=== PATIENT | female | born 1970 | race Caucasian/White ===

== ENCOUNTER → 2018-10-30 | Outpatient (CLI) | payer OTHER ==
[2018-10-30 08:56] LABS: microscopic required? YES; urine erythrocyte NEGATIVE (NEGATIVE)
[2018-10-30 08:57] LABS: BASOPHIL % 0.6 % (0-2); PLATELET COUNT 189 x10^3mcL (130-400)
[2018-10-30 09:27] LABS: ALBUMIN 3.5 g/dL (3.4-5.0); ALKALINE PHOSPHATASE 102 U/L (46-116); ALT/SGPT 39 U/L (14-59); AST/SGOT 21 U/L (15-37); BILIRUBIN TOTAL 0.2 mg/dL (0.20-1.00); CALCIUM 8.9 mg/dL (8.5-10.1); CARBON DIOXIDE 27.9 mmol/L (21-32); CHLORIDE SERUM 104 mmol/L (98-107); CHOLESTEROL 173 mg/dL (<200); CREATININE SERUM 0.7 mg/dL (0.6-1.0); FREE T4 0.85 ng/dL (0.76-1.46); GFR1 > 60 mL/min; GLUCOSE SERUM 96 mg/dL (74-106); HDL CHOLESTEROL 57 mg/dL (40-60); POTASSIUM SERUM 3.9 mmol/L (3.5-5.1); SODIUM SERUM 138 mmol/L (136-145); TOTAL PROTEIN, SERUM 7.8 g/dL (6.4-8.2); TRIGLYCERIDES 130 mg/dL (<150)
== END | disposition home or self-care (01) ==
LOC: LB 08:18
PROVIDERS: Family Medicine Geriatric Medicine
DX: E78.5 Hyperlipidemia, unspecified (principal); R79.89 Other specified abnormal findings of blood chemistry; Z13.29 Encounter for screening for other suspected endocrine disorder; Z13.228 Encounter for screening for other metabolic disorders; Z13.1 Encounter for screening for diabetes mellitus; Z13.0 Encounter for screening for diseases of the blood and blood-forming organs and certain disorders involving the immune mechanism
CPT/HCPCS: 84439

== ENCOUNTER → 2018-11-19 | Outpatient (CLI) | payer OTHER | END | disposition home or self-care (01) | LOC: US 12:20 → RD 12:20 | PROC: B345ZZZ Ultrasonography of Bilateral Common Carotid Arteries (ICD-10-PCS; principal; 2018-11-19) | PROC: B348ZZZ Ultrasonography of Bilateral Internal Carotid Arteries (ICD-10-PCS; 2018-11-19) | DX: Z86.79 Personal history of other diseases of the circulatory system (principal) | CPT/HCPCS: Q0092 ==

== ENCOUNTER → 2019-03-05 | Outpatient (CLI) | payer OTHER | END | disposition home or self-care (01) | LOC: LB 14:11 | DX: R73.03 Prediabetes (principal) ==

== ENCOUNTER → 2019-07-16 | Outpatient (CLI) | payer OTHER | END | disposition home or self-care (01) | LOC: LB 09:42 | DX: R73.03 Prediabetes (principal); R79.89 Other specified abnormal findings of blood chemistry | CPT/HCPCS: 82652 ==

== ENCOUNTER → 2019-11-06 | Outpatient (CLI) | payer OTHER | END | disposition home or self-care (01) | LOC: MA 10:00 | PROC: BH02ZZZ Plain Radiography of Bilateral Breasts (ICD-10-PCS; principal; 2019-11-06) | DX: Z12.39 Encounter for other screening for malignant neoplasm of breast (principal); Z12.31 Encounter for screening mammogram for malignant neoplasm of breast | CPT/HCPCS: 77067 ==

== ENCOUNTER → 2019-11-12 | Outpatient (CLI) | payer OTHER ==
[2019-11-12 13:38] LABS: microscopic required? NO
[2019-11-12 13:46] LABS: BASOPHIL % 0.4 % (0-2); PLATELET COUNT 237 x10^3mcL (130-400); RED CELL DISTRIBUTION WIDTH 13.3 % (11.5-14.5)
[2019-11-12 13:53] LABS: UA SPECIFIC GRAVITY >=1.030 (1.005-1.035); urine erythrocyte NEGATIVE (NEGATIVE)
[2019-11-12 14:11] LABS: ALBUMIN 3.9 g/dL (3.4-5.0); ALKALINE PHOSPHATASE 90 U/L (46-116); ALT/SGPT 56 U/L (14-59); AST/SGOT 28 U/L (15-37); BILIRUBIN TOTAL 0.4 mg/dL (0.20-1.00); CARBON DIOXIDE 24.9 mmol/L (21-32); CHLORIDE SERUM 107 mmol/L (98-107); CREATININE SERUM 0.7 mg/dL (0.6-1.0); FREE T4 1.14 ng/dL (0.76-1.46); GFR1 > 60 mL/min; GLUCOSE SERUM 83 mg/dL (74-106); POTASSIUM SERUM 3.6 mmol/L (3.5-5.1); SODIUM SERUM 143 mmol/L (136-145); TOTAL PROTEIN, SERUM 7.8 g/dL (6.4-8.2); TRIGLYCERIDES 69 mg/dL (<150)
[2019-11-12 14:17] LABS: CHOLESTEROL 217 mg/dL (<200); CHOLESTEROL/HDL RATIO 3.2; HDL CHOLESTEROL 68 mg/dL (40-60)
== END | disposition home or self-care (01) ==
LOC: LB 13:10
DX: R79.89 Other specified abnormal findings of blood chemistry (principal); R73.03 Prediabetes; E78.5 Hyperlipidemia, unspecified; Z13.29 Encounter for screening for other suspected endocrine disorder; Z13.228 Encounter for screening for other metabolic disorders; Z13.0 Encounter for screening for diseases of the blood and blood-forming organs and certain disorders involving the immune mechanism
CPT/HCPCS: 82652; 84439

== ENCOUNTER → 2020-05-12 | Outpatient (CLI) | payer OTHER ==
[2020-05-12 12:28] LABS: ALBUMIN 3.9 g/dL (3.4-5.0); ALKALINE PHOSPHATASE 105 U/L (46-116); ALT/SGPT 24 U/L (14-59); AST/SGOT 22 U/L (15-37); BILIRUBIN TOTAL 0.4 mg/dL (0.20-1.00); CALCIUM 8.6 mg/dL (8.5-10.1); CARBON DIOXIDE 29.4 mmol/L (21-32); CHLORIDE SERUM 103 mmol/L (98-107); CREATININE SERUM 0.7 mg/dL (0.6-1.0); GFR1 > 60 mL/min; GLUCOSE SERUM 88 mg/dL (74-106); POTASSIUM SERUM 3.7 mmol/L (3.5-5.1); SODIUM SERUM 138 mmol/L (136-145); TOTAL PROTEIN, SERUM 7.8 g/dL (6.4-8.2); TRIGLYCERIDES 103 mg/dL (<150)
[2020-05-12 12:29] LABS: CHOLESTEROL 264 mg/dL (<200); CHOLESTEROL/HDL RATIO 4.3; HDL CHOLESTEROL 61 mg/dL (40-60)
== END | disposition home or self-care (01) ==
LOC: RD 11:20
DX: E78.5 Hyperlipidemia, unspecified (principal); M25.562 Pain in left knee; M25.572 Pain in left ankle and joints of left foot

== ENCOUNTER → 2020-09-19 | Outpatient (CLI) | payer OTHER | LOC: MI 09-14 10:00 | PROC: BQ38ZZZ Magnetic Resonance Imaging (MRI) of Left Knee (ICD-10-PCS; principal; 2020-09-19) | DX: M25.562 Pain in left knee (principal) ==